=== PATIENT | male | born 1995 | race Caucasian/White ===

== ENCOUNTER 2022-07-17 17:44 | Emergency (ER) | payer OTHER, SELFPAY ==
--- NOTE | ~2022-07-17 | CT_ITS ---
EXAMINATION: CT ABDOMEN AND PELVIS WITHOUT CONTRAST CLINICAL INFORMATION: Abdominal pain COMPARISON: None available. TECHNIQUE: Multidetector volumetric imaging was performed from the superior aspect of the liver through the pubic symphysis. Sagittal and coronal reformatted images were obtained on the technologist's workstation. This CT examination was performed using dose optimization techniques as appropriate, variously including the following: *Automated exposure control *Adjustment of mA and/or kV according to patient size (this includes techniques or standardized protocols for targeted exams where dose is matched to indication/reason for exam; i.e. extremities or head) *Use of iterative reconstruction technique DLP: 921 mGy-cm FINDINGS: LUNG BASES: The visualized lung bases are unremarkable. LIVER, GALLBLADDER, AND BILIARY TREE: The liver is normal in size, shape, and attenuation. No focal hepatic lesion or biliary ductal dilatation is present. The gallbladder is unremarkable with no evidence of radiopaque gallstones, gallbladder wall thickening, or obvious pericholecystic inflammatory changes. PANCREAS: Unremarkable. SPLEEN: Unremarkable. ADRENAL GLANDS: Unremarkable. KIDNEYS AND URETERS: The kidneys are normal in size, shape, and attenuation. No hydronephrosis, hydroureter, or calculi seen. No perinephric stranding. BLADDER: Bladder is undistended with mild bladder wall thickening. GASTROINTESTINAL TRACT: There is scattered stool and gas in colon without distention. There are are multiple dilated small bowel loops with air-fluid levels extending to the ileocecal junction. There is fecal residue in distal ileal loops suggestive of small bowel feces sign . No mural thickening or inflammatory process seen. Appendix is normal caliber There is no free air or free fluid. No inflammatory process seen ABDOMINAL WALL: No significant hernia is appreciated. LYMPH NODES: Normal. VASCULAR: Unremarkable. PELVIC VISCERA: Unremarkable. OSSEOUS STRUCTURES: No aggressive lytic or sclerotic process seen. CT/CT abdomen pelvis wo IV con IMPRESSION: 1. Multiple dilated small bowel loops with air-fluid levels extending to the ileocecal junction. There is small bowel feces sign in distal ileal loops. No free air or free fluid seen. Findings are suggestive of small bowel ileus 2. No radiopaque urolith or hydroureteronephrosis. Fleischner guidelines were followed.
[2022-07-17 17:55] VITALS: BP 123/80; PULSE 91; RESP 20; TEMP 37.3; O2SAT 99; BMI 32.7
--- NOTE | 2022-07-17 17:56 | ED_ITS ---
HPI - Abdominal Pain General Chief Complaint: Abdominal Pain <ELSY Flanagan - Last Filed: 07/17/22 17:57> Stated Complaint: Abd pain <ELSY Flanagan - Last Filed: 07/17/22 17:57> Time Seen by Provider: 07/17/22 18:18 <ELSY Flanagan - Last Filed: 07/17/22 17:57> Source: patient <Deondre Rogers MD - Last Filed: 07/17/22 21:54> Mode of arrival: ambulatory <Deondre Rogers MD - Last Filed: 07/17/22 21:54> Limitations: no limitations <Deondre Rogers MD - Last Filed: 07/17/22 21:54> History of Present Illness HPI narrative: 26-year-old male came in for evaluation of vomiting, abdominal pain, 1 time diarrhea. Patient thinks it is a food poisoning from something he ate earlier today, no sick contacts, no recent travel, no recent use of antibiotics, patient describes mid abdominal pain that has been constant for the past few hours, had 1 nonbloody watery diarrhea, patient also vomited nonbloody vomitus x4. No recent travel. No abdominal surgical history. <Deondre Rogers MD - Last Filed: 07/17/22 21:54> Related Data Allergies/Adverse Reactions: Allergies Allergy/AdvReac Type Severity Reaction Status Date / Time Unable to Assess Allergy Unverified 07/17/22 17:55 <ELSY Flanagan - Last Filed: 07/17/22 17:57> Review of Systems Review of Systems All other systems are reviewed and are negative Constitutional: Reports as per HPI and Reports no additional constitutional complaints Eyes: Reports as per HPI and Reports no additional eye complaints Reports system reviewed and no additional complaints, except as documented Cardiovascular: Reports as per HPI and Reports no additional cardiovascular complaints Respiratory: Reports as per HPI and Reports no additional respiratory complaints Gastrointestinal: Reports as per HPI and Reports no additional gastrointestinal complaints Genitourinary: Reports no additional female genitourinary complaints Musculoskeletal: Reports no additional musculoskeletal complaints Skin/Breast: Reports system reviewed and no additional complaints, except as docu Psychiatric: Reports no additional psychiatric complaints Endocrine: Reports no additional endocrine complaints Hematologic/Lymphatic: Reports no additional hematologic/lymphatic complaints Allergic/Immunologic: Reports no additional allergic/immunologic complaints Reports system reviewed and no additional complaints, except as documented and Reports Abnormal speech present <Deondre Rogers MD - Last Filed: 07/17/22 21:54> [facility] Social History Social History: Social History Alcohol intake: never Smoked in Last 30 Days: No Use of substances other than those prescribed or required for medical reasons: No Advance Directives: No Advance Directives Information Provided: No <ELSY Flanagan - Last Filed: 07/17/22 17:57> Physical Exam ED Vital Signs: Vital Signs - 24 hr 07/17/22 17:55 07/17/22 19:40 07/17/22 21:36 Temperature 99.2 F 98.1 F 98.3 F Pulse Rate 91 72 78 Respiratory Rate 20 18 16 Blood Pressure 123/80 102/50 L 107/57 L Pulse Oximetry 99 99 97 Oxygen Delivery Method Room Air Room Air Room Air BMI result Body Mass Index 32.7 <ELSY Flanagan - Last Filed: 07/17/22 17:57> Vital Signs - 24 hr 07/17/22 17:55 07/17/22 19:40 07/17/22 21:36 Temperature 99.2 F 98.1 F 98.3 F Pulse Rate 91 72 78 Respiratory Rate 20 18 16 Blood Pressure 123/80 102/50 L 107/57 L Pulse Oximetry 99 99 97 Oxygen Delivery Method Room Air Room Air Room Air BMI result Body Mass Index 32.7 Vital signs have been reviewed as appeared to be correct. Blood pressure normal. Heart rate normal. Respiration rate normal. Temperature normal. Oxygen saturation normal. <Deondre Rogers MD - Last Filed: 07/17/22 21:54> Appearance: Alert. Oriented X3. No acute distress. Head: Normal external exam. Normocephalic. Atraumatic. No Mcdonald signs noted. No raccoon eyes noted Eyes: PERRLA. EOMI. Conjunctiva and sclera normal. Eyelids normal. ENT: TM's Normal. Pharynx normal. Uvula midline. Moist mucous membranes. No trismus noted. No drooling noted. No muffled voice noted. Neck: Normal inspection. Neck supple. FROM. No adenopathy. Thyroid Normal. No meningeal signs. No neck mass noted. CVS: Normal heart rate and rhythm. Heart sound normal. No murmurs noted. Pulses normal throughout. Respiratory: No respiratory distress. Painless inspiration. Breath sounds normal. No wheezes/rales/rhonchi noted. Chest nontender. No accessory muscle usage noted or decreased air movement noted. Abdomen: Soft and nontender. Bowel sounds normal in all 4 quadrants. No distention noted. No organomegaly noted. No visible injury noted. Back: No CVA tenderness. Full range of motion noted. Skin: Skin warm and dry. Normal skin color. Normal skin turgor. No rashes/lesions/lacerations noted. Extremities: No lower extremity edema. Extremities exhibit normal range of motion. Extremities nontender. Neuro: Oriented X 3. Cranial nerve exam: II-XII are grossly intact No motor deficit. No sensory deficit. Reflexes normal. <Deondre Rogers MD - Last Filed: 07/17/22 21:54> Course Course Course Narrative: This is an RME: Additional HPI, ROS, PE not included below will be deferred to primary provider. 26-year-old male presents severe epigastric pain, anorexia, nausea, vomiting he thinks he has food poisoning. This started at 16:00, sudden. Reports pain is 5/10. Has not had previous abdominal surgeries. Plan labs, imaging, urine. Will also obtain viral test <ELSY Flanagan - Last Filed: 07/17/22 17:57> Reevaluation(s) Reevaluation #1: 26-year-old male came in with abdominal pain, nausea, vomiting found to have leukocytosis patient believe it is food poisoning from a bad food he ate earlier, CT showing ileus, patient now is able to keep oral intake with no nausea or vomiting patient also is passing gas as while in the emergency department, no past abdominal surgery in the past to suspect small-bowel obstruction, able to tolerate p.o. intake, no nausea, no vomiting. Will discharge to follow-up with PCP. <Deondre Rogers MD - Last Filed: 07/17/22 21:54> Time: 21:50 <Deondre Rogers MD - Last Filed: 07/17/22 21:54> Medical Decision Making Differential Diagnosis Differential Diagnoses: The differential diagnosis associated with the presentation includes (Acute appendicitis, colitis, small-bowel obstruction, ileus, food poisoning, electrolyte abnormalities, severe anemia.) <Deondre Rogers MD - Last Filed: 07/17/22 21:54> Admission/Observation Consideration of admission/observation: Escalation of care including admission/observation considered <Deondre Rogers MD - Last Filed: 07/17/22 21:54> Lab Data MDM Lab Attestation statement: I reviewed the patient's lab results. <Deondre Rogers MD - Last Filed: 07/17/22 21:54> Result Diagrams: 07/17/22 18:27 07/17/22 18:27 <ELSY Flanagan - Last Filed: 07/17/22 17:57> Labs: Lab Results 07/17/22 07/17/22 07/17/22 Range/Units 18:27 18:27 18:27 WBC 17.8 H (4.8-10.8) X10*3/uL RBC 5.37 (4.60-5.80) X10*6/uL Hgb 15.9 (14.0-18.0) g/dl Hct 47.6 (42.0-52.0) % MCV 88.6 (80.0-98.0) fL MCH 29.6 (27.0-33.0) pg MCHC 33.4 (31.0-36.0) g/dl RDW 12.4 (11.0-16.0) % Plt Count 236 (160-400) X10*3/uL MPV 10.0 (9.4-12.4) fL Immature Gran % (Auto) 0.6 H (0.0-0.4) % Neut % (Auto) 87.5 H (45-73) % Lymph % (Auto) 5.6 L (20-40) % Converse % (Auto) 6.0 (2-11) % Eos % (Auto) 0.1 (0-4) % Baso % (Auto) 0.2 (0-2) % Lymph # (Auto) 1.0 L (1.2-4.9) X10*3/uL Converse # (Auto) 1.1 (0.1-1.2) X10*3/uL Eos # (Auto) 0.0 (0.0-0.4) X10*3/uL Baso # (Auto) 0.0 (0.0-0.2) X10*3/uL Abs Immat Gran (auto) 0.10 H (0.00-0.03) X10*3/uL Absolute Neuts (auto) 15.6 H (2.0-8.3) x10*3/uL Absolute Nucleated RBC 0.000 (0.0-0.012) X10*3/uL Nucleated RBC % (auto) 0.0 (0.0-0.2) /100WBC Sodium 143 (135-145) mmol/L Potassium 3.9 (3.3-5.1) mmol/L Chloride 107 (96-108) mmol/L Carbon Dioxide 25 (22-29) mmol/L Anion Gap 15 (12-20) BUN 19 H (9-16) mg/dL Creatinine 1.37 (0.5-1.4) mg/dL Estim Creat Clear Calc 112.4 Estimated GFR > 60 Random Glucose 117 H (60-115) mg/dL Calcium 10.0 (8.4-10.2) mg/dL Magnesium 1.9 (1.6-2.6) mg/dL Total Bilirubin 0.5 (0.0-1.0) mg/dL AST 23 (5-37) U/L ALT 25 (0-40) U/L Alkaline Phosphatase 90 (39-117) U/L Total Protein 8.0 (6.5-8.0) g/dL Albumin 4.9 (3.5-5.0) g/dL COVID-19 (DONNA) (Negative) COVID-19 Clin Com Influenza Type A (NAOMY) Negative (Negative) Influenza Type B (NAOMY) Negative (Negative) Influenza A & B Note See Note 07/17/22 Range/Units 18:27 WBC (4.8-10.8) X10*3/uL RBC (4.60-5.80) X10*6/uL Hgb (14.0-18.0) g/dl Hct (42.0-52.0) % MCV (80.0-98.0) fL MCH (27.0-33.0) pg MCHC (31.0-36.0) g/dl RDW (11.0-16.0) % Plt Count (160-400) X10*3/uL MPV (9.4-12.4) fL Immature Gran % (Auto) (0.0-0.4) % Neut % (Auto) (45-73) % Lymph % (Auto) (20-40) % Converse % (Auto) (2-11) % Eos % (Auto) (0-4) % Baso % (Auto) (0-2) % Lymph # (Auto) (1.2-4.9) X10*3/uL Converse # (Auto) (0.1-1.2) X10*3/uL Eos # (Auto) (0.0-0.4) X10*3/uL Baso # (Auto) (0.0-0.2) X10*3/uL Abs Immat Gran (auto) (0.00-0.03) X10*3/uL Absolute Neuts (auto) (2.0-8.3) x10*3/uL Absolute Nucleated RBC (0.0-0.012) X10*3/uL Nucleated RBC % (auto) (0.0-0.2) /100WBC Sodium (135-145) mmol/L Potassium (3.3-5.1) mmol/L Chloride (96-108) mmol/L Carbon Dioxide (22-29) mmol/L Anion Gap (12-20) BUN (9-16) mg/dL Creatinine (0.5-1.4) mg/dL Estim Creat Clear Calc Estimated GFR Random Glucose (60-115) mg/dL Calcium (8.4-10.2) mg/dL Magnesium (1.6-2.6) mg/dL Total Bilirubin (0.0-1.0) mg/dL AST (5-37) U/L ALT (0-40) U/L Alkaline Phosphatase (39-117) U/L Total Protein (6.5-8.0) g/dL Albumin (3.5-5.0) g/dL COVID-19 (DONNA) Negative (Negative) COVID-19 Clin Com See Note Influenza Type A (NAOMY) (Negative) Influenza Type B (NOAMY) (Negative) Influenza A & B Note <ELSY Flanagan - Last Filed: 07/17/22 17:57> Lab Results 07/17/22 07/17/22 07/17/22 Range/Units 18:27 18:27 18:27 WBC 17.8 H (4.8-10.8) X10*3/uL RBC 5.37 (4.60-5.80) X10*6/uL Hgb 15.9 (14.0-18.0) g/dl Hct 47.6 (42.0-52.0) % MCV 88.6 (80.0-98.0) fL MCH 29.6 (27.0-33.0) pg MCHC 33.4 (31.0-36.0) g/dl RDW 12.4 (11.0-16.0) % Plt Count 236 (160-400) X10*3/uL MPV 10.0 (9.4-12.4) fL Immature Gran % (Auto) 0.6 H (0.0-0.4) % Neut % (Auto) 87.5 H (45-73) % Lymph % (Auto) 5.6 L (20-40) % Converse % (Auto) 6.0 (2-11) % Eos % (Auto) 0.1 (0-4) % Baso % (Auto) 0.2 (0-2) % Lymph # (Auto) 1.0 L (1.2-4.9) X10*3/uL Converse # (Auto) 1.1 (0.1-1.2) X10*3/uL Eos # (Auto) 0.0 (0.0-0.4) X10*3/uL Baso # (Auto) 0.0 (0.0-0.2) X10*3/uL Abs Immat Gran (auto) 0.10 H (0.00-0.03) X10*3/uL Absolute Neuts (auto) 15.6 H (2.0-8.3) x10*3/uL Absolute Nucleated RBC 0.000 (0.0-0.012) X10*3/uL Nucleated RBC % (auto) 0.0 (0.0-0.2) /100WBC Sodium 143 (135-145) mmol/L Potassium 3.9 (3.3-5.1) mmol/L Chloride 107 (96-108) mmol/L Carbon Dioxide 25 (22-29) mmol/L Anion Gap 15 (12-20) BUN 19 H (9-16) mg/dL Creatinine 1.37 (0.5-1.4) mg/dL Estim Creat Clear Calc 112.4 Estimated GFR > 60 Random Glucose 117 H (60-115) mg/dL Calcium 10.0 (8.4-10.2) mg/dL Magnesium 1.9 (1.6-2.6) mg/dL Total Bilirubin 0.5 (0.0-1.0) mg/dL AST 23 (5-37) U/L ALT 25 (0-40) U/L Alkaline Phosphatase 90 (39-117) U/L Total Protein 8.0 (6.5-8.0) g/dL Albumin 4.9 (3.5-5.0) g/dL COVID-19 (DONNA) (Negative) COVID-19 Clin Com Influenza Type A (NAOMY) Negative (Negative) Influenza Type B (NAOMY) Negative (Negative) Influenza A & B Note See Note 07/17/22 Range/Units 18:27 WBC (4.8-10.8) X10*3/uL RBC (4.60-5.80) X10*6/uL Hgb (14.0-18.0) g/dl Hct (42.0-52.0) % MCV (80.0-98.0) fL MCH (27.0-33.0) pg MCHC (31.0-36.0) g/dl RDW (11.0-16.0) % Plt Count (160-400) X10*3/uL MPV (9.4-12.4) fL Immature Gran % (Auto) (0.0-0.4) % Neut % (Auto) (45-73) % Lymph % (Auto) (20-40) % Converse % (Auto) (2-11) % Eos % (Auto) (0-4) % Baso % (Auto) (0-2) % Lymph # (Auto) (1.2-4.9) X10*3/uL Converse # (Auto) (0.1-1.2) X10*3/uL Eos # (Auto) (0.0-0.4) X10*3/uL Baso # (Auto) (0.0-0.2) X10*3/uL Abs Immat Gran (auto) (0.00-0.03) X10*3/uL Absolute Neuts (auto) (2.0-8.3) x10*3/uL Absolute Nucleated RBC (0.0-0.012) X10*3/uL Nucleated RBC % (auto) (0.0-0.2) /100WBC Sodium (135-145) mmol/L Potassium (3.3-5.1) mmol/L Chloride (96-108) mmol/L Carbon Dioxide (22-29) mmol/L Anion Gap (12-20) BUN (9-16) mg/dL Creatinine (0.5-1.4) mg/dL Estim Creat Clear Calc Estimated GFR Random Glucose (60-115) mg/dL Calcium (8.4-10.2) mg/dL Magnesium (1.6-2.6) mg/dL Total Bilirubin (0.0-1.0) mg/dL AST (5-37) U/L ALT (0-40) U/L Alkaline Phosphatase (39-117) U/L Total Protein (6.5-8.0) g/dL Albumin (3.5-5.0) g/dL COVID-19 (DONNA) Negative (Negative) COVID-19 Clin Com See Note Influenza Type A (NAOMY) (Negative) Influenza Type B (NAOMY) (Negative) Influenza A & B Note <Deondre Rogers MD - Last Filed: 07/17/22 21:54> Independent Interpretation I performed an independent interpretation of an: CT Scan (Abdomen and pelvis: Small bowel ileus) <Deondre Rogers MD - Last Filed: 07/17/22 21:54> Radiology Impression Discussion of test interpretation with radiology: I have reviewed the radiologist's reading. <Deondre Rogers MD - Last Filed: 07/17/22 21:54> Medications Administered Discontinued Medications Generic Name Dose Route Start Last Admin Trade Name Freq PRN Reason Stop Dose Admin Al Hydroxide/Mg Hydroxide 30 ml 07/17/22 18:22 07/17/22 18:36 Magnesium Hydrox/Alum Hydrox 30 Ml Oral.Susp PO 07/17/22 18:23 30 ml ONCE ONE Administration Famotidine 20 mg 07/17/22 18:22 07/17/22 18:36 Famotidine/Pf 20 Mg/2 Ml Vial IVPUSH 07/17/22 18:23 20 mg ONCE ONE Administration Sodium Chloride 1,000 mls @ 999 mls/hr 07/17/22 18:22 07/17/22 18:36 Ns IV 07/17/22 19:22 999 mls/hr .Q1H1M ONE Administration Ondansetron HCl 4 mg 07/17/22 17:55 07/17/22 18:13 Ondansetron Odt 4 Mg Tab.Rapdis TRANSLINGU 07/17/22 17:56 4 mg ONCE ONE Administration Ondansetron HCl 4 mg 07/17/22 18:22 07/17/22 18:36 Ondansetron Hcl 4 Mg/2 Ml Vial IVPUSH 07/17/22 18:23 4 mg ONCE ONE Administration <ELSY Flanagan - Last Filed: 07/17/22 17:57> Medications Administered Discontinued Medications Generic Name Dose Route Start Last Admin Trade Name Freq PRN Reason Stop Dose Admin Al Hydroxide/Mg Hydroxide 30 ml 07/17/22 18:22 07/17/22 18:36 Magnesium Hydrox/Alum Hydrox 30 Ml Oral.Susp PO 07/17/22 18:23 30 ml ONCE ONE Administration Famotidine 20 mg 07/17/22 18:22 07/17/22 18:36 Famotidine/Pf 20 Mg/2 Ml Vial IVPUSH 07/17/22 18:23 20 mg ONCE ONE Administration Sodium Chloride 1,000 mls @ 999 mls/hr 07/17/22 18:22 07/17/22 18:36 Ns IV 07/17/22 19:22 999 mls/hr .Q1H1M ONE Administration Ondansetron HCl 4 mg 07/17/22 17:55 07/17/22 18:13 Ondansetron Odt 4 Mg Tab.Rapdis TRANSLINGU 07/17/22 17:56 4 mg ONCE ONE Administration Ondansetron HCl 4 mg 07/17/22 18:22 07/17/22 18:36 Ondansetron Hcl 4 Mg/2 Ml Vial IVPUSH 07/17/22 18:23 4 mg ONCE ONE Administration <Deondre Rogers MD - Last Filed: 07/17/22 21:54> Discharge Plan Discharge Clinical Impression: Food poisoning, Ileus <ELSY Flanagan - Last Filed: 07/17/22 17:57> Patient Disposition: Home, Self-Care <ELSY Flanagan - Last Filed: 07/17/22 17:57> Instructions: Food Poisoning (ED), Ileus (ED) <ELSY Flanagan - Last Filed: 07/17/22 17:57>
[2022-07-17] MEDS: Ondansetron ODT 4 MG TAB.RAPDIS TRANSLINGU (18:13)
[2022-07-17 18:30] LABS: MANUAL DIFF FLAG NO
[2022-07-17 18:33] LABS: Basophils Percent Auto 0.2 % (0-2); Eosinophils Percent Auto 0.1 % (0-4); Hematocrit 47.6 % (42.0-52.0); Hemoglobin 15.9 g/dl (14.0-18.0); Imm Gran Pct Auto 0.6 % (0.0-0.4); Lymphocytes Percent Auto 5.6 % (20-40); Mean Corpuscular HGB Conc 33.4 g/dl (31.0-36.0); Mean Corpuscular Hemoglobin 29.6 pg (27.0-33.0); Mean Corpuscular Volume 88.6 fL (80.0-98.0); Monocytes Absolute Auto 1.1 X10*3/uL (0.1-1.2); Neutrophils Absolute Auto 15.6 x10*3/uL (2.0-8.3); Neutrophils Percent Auto 87.5 % (45-73); Platelet Count 236 X10*3/uL (160-400); Red Blood Count 5.37 X10*6/uL (4.60-5.80); Red Cell Distribution Width 12.4 % (11.0-16.0); White Blood Count 17.8 X10*3/uL (4.8-10.8)
[2022-07-17] MEDS: ondansetron HCL 4 MG/2 ML VIAL IVPUSH (18:36)
[2022-07-17] MEDS: Magnesium Hydrox/Alum Hydrox 30 ML ORAL.SUSP PO (18:36)
[2022-07-17] MEDS: Famotidine/PF 20 MG/2 ML VIAL IVPUSH (18:36)
[2022-07-17] MEDS: 0.9 % Sodium Chloride 1,000 ML 999 ML IV (18:36)
[2022-07-17 18:45] LABS: COVID-19 Test Negative (Negative); IDNOW Serial# 08D9AD1C; IDNOW Serial# BCCEAD1C; Influenza A Negative (Negative); Influenza B2 Negative (Negative)
[2022-07-17 18:51] LABS: Alanine Aminotransferase 25 U/L (0-40); Albumin Level 4.9 g/dL (3.5-5.0); Alkaline Phosphatase 90 U/L (39-117); Anion Gap 15 (12-20); Aspartate Amino Transferase 23 U/L (5-37); Bilirubin Total 0.5 mg/dL (0.0-1.0); Blood Urea Nitrogen 19 mg/dL (9-16); Carbon Dioxide 25 mmol/L (22-29); Chloride 107 mmol/L (96-108); Creatinine Clr Calc Pharmacy 112.4; Estimated Glomerular Filt Rate > 60; Glucose Random 117 mg/dL (60-115); Magnesium 1.9 mg/dL (1.6-2.6); Potassium 3.9 mmol/L (3.3-5.1); Sodium 143 mmol/L (135-145)
[2022-07-17 19:40] VITALS: BP 102/50; PULSE 72; RESP 18; TEMP 36.7; O2SAT 99
--- NOTE | 2022-07-17 20:10 | PC.NURSE ---
pt a&o, no sign of distress, provider in to assess pt and give a po challenge, pt awaiting parent to arrive from [place]. Will continue to monitor.
[2022-07-17 21:36] VITALS: BP 107/57; PULSE 78; RESP 16; TEMP 36.8; O2SAT 97
== END 2022-07-17 22:53 | disposition home or self-care (01) ==
PROVIDERS: Physician Assistant; Emergency Provider Emergency Medicine
DX: A05.9 Bacterial foodborne intoxication, unspecified (principal); K56.7 Ileus, unspecified; Z20.822 Contact with and (suspected) exposure to COVID-19
CPT/HCPCS: 74176; 80053; 83735; 85025; 87502; 87635; 96374; 96375; 99284; J2405